=== PATIENT | female | born 1985 | race Caucasian/White ===

== ENCOUNTER 2024-05-09 15:49 | Emergency (ER) | payer MEDICAID ==
[~2024-05-09] VITALS: Ht 172.7 cm; Wt 135.0 kg
[2024-05-09 16:29] LABS: BASOPHILS # (AUTO) 0.1 X10'3 (0-0.2); BASOPHILS % (AUTO) 0.8 % (0-1); EOSINOPHILS # (AUTO) 0.1 X10'3 (0-0.9); HEMATOCRIT 35.4 % (35.0-45.0); LYMPHOCYTES # (AUTO) 2.3 X10'3 (1.1-4.8); MEAN CORPUSCULAR HEMOGLOBIN 27.6 PG (27.0-31.0); MEAN CORPUSCULAR HGB CONC 33.8 g/dL (33.0-36.5); MEAN CORPUSCULAR VOLUME 81.7 FL (78-98); MEAN PLATELET VOLUME 7.9 FL (7.4-10.4); MONOCYTES # (AUTO) 0.7 X10'3 (0-0.9); MONOCYTES % (AUTO) 7.2 % (2-12); NEUTROPHILS # (AUTO) 6.2 X10'3 (1.8-7.7); PLATELET COUNT 256 X10'3 (140-440); RED BLOOD COUNT 4.33 X10'6 (4.20-5.60); RED CELL DISTRIBUTION WIDTH 15.5 % (11.5-14.5); WHITE BLOOD COUNT 9.4 X10'3 (4.5-11.0)
[2024-05-09 16:38] LABS: ALBUMIN 3.2 G/DL (3.4-5.0); ANION GAP 7 (8-16); BLOOD UREA NITROGEN 13 MG/DL (7-18); BUN/CREATININE RATIO 12.9 (10.0-20.0); CALCIUM 8.6 MG/DL (8.5-10.1); CHLORIDE 106 MMOL/L (99-107); CREATININE 1.01 MG/DL (0.40-0.90); GLUCOSE 115 MG/DL (70-104); POTASSIUM 3.8 MMOL/L (3.5-5.1); SODIUM 139 MMOL/L (135-145); TOTAL CARBON DIOXIDE 26.1 MMOL/L (24-32); eCRCL 76 ML/MIN; eGFR 61 ML/MIN
[2024-05-09 17:19] LABS: PRO BRAIN NATRIURETIC PEPTIDE 321 PG/ML (0-125)
[2024-05-09 17:39] LABS: HCG SERUM QL NEGATIVE
[2024-05-09 18:24] VITALS: TEMP 97.9
[2024-05-09 18:24] LABS: BILIRUBIN,URINE NEGATIVE (Neg); CLARITY,URINE CLEAR (Clear); COLOR,URINE YELLOW (Yellow); GLUCOSE, URINE NEGATIVE (Neg); KETONES,URINE NEGATIVE (Neg); LEUKOCYTE ESTERASE ,URINE NEGATIVE (Neg); NITRITES, URINE NEGATIVE (Neg); OCCULT BLOOD,URINE NEGATIVE (Neg); PH,URINE 6.5 (4.8-8.0); PROTEIN,URINE 30 mg/dl (Neg); UROBILINOGEN,URINE 0.2 E.U/dL (0.2-1.0)
[2024-05-09 18:29] LABS: UA COLLECTION TYPE CLN CATCH MIDSTREAM
[2024-05-09 18:31] LABS: SQUAMOUS EPITHELIAL CELL,UR FEW /LPF (FEW)
[2024-05-09 18:32] LABS: BACTERIA,URINE 1+ /HPF (Neg); RBC,URINE NONE SEEN /HPF (0-2); URINE AMPHETAMINE SCREEN NEGATIVE (Neg); URINE BARBITUATE SCREEN NEGATIVE (Neg); URINE BENZODIAZEPINES SCREEN NEGATIVE (Neg); URINE CANNABINOID SCREEN NEGATIVE (Neg); URINE COCAINE SCREEN NEGATIVE (Neg); URINE METHADONE SCREEN NEGATIVE (Neg); URINE OPIATE SCREEN NEGATIVE (Neg); URINE PHENCYCLIDINE SCREEN NEGATIVE (Neg)
[2024-05-09] MEDS: dexamethasone sod phosphate 10mg/ml inj IM STA (19:12)
[2024-05-09] MEDS: metoclopramide 5 mg/ml inj IM ONE (19:13)
[2024-05-09] MEDS: diphenhydrAMINE 50 mg/ml inj IM ONE (19:13)
[2024-05-09] MEDS: ketorolac trometh. 30mg/ml inj. IM ONE (19:13)
[2024-05-09] MEDS ORDERED: SCOP1PAT11 TOP (19:41)
[2024-05-09] MEDS ORDERED: ONDA-243 PO (19:41)
[2024-05-09 20:30] VITALS: BP 152/80; PULSE 62; RESP 16; O2SAT 97
== END 2024-05-09 20:39 | disposition home or self-care (01) ==
LOC: ER 15:51
DX: R55 Syncope and collapse (principal); Z88.2 Allergy status to sulfonamides; Z87.891 Personal history of nicotine dependence
CPT/HCPCS: 36415; 70450; 80048; 80305; 81001; 83880; 84484; 84703; 85025; 87077; 87088; 87186; 93005; 96372; 99285; J1100; J1200; J1885; J2765

== ENCOUNTER 2024-06-21 18:19 | Emergency (ER) | payer MEDICAID ==
[~2024-06-21] VITALS: Ht 172.7 cm; Wt 131.9 kg
[~2024-06-21 18:19] MED LIST: ONDA-243 PO; SCOP1PAT11 TOP
[2024-06-21 19:34] LABS: BASOPHILS # (AUTO) 0.1 X10'3 (0-0.2); BASOPHILS % (AUTO) 0.9 % (0-1); EOSINOPHILS # (AUTO) 0.2 X10'3 (0-0.9); EOSINOPHILS % (AUTO) 1.7 % (0-6); HEMOGLOBIN 12.3 g/dl (12.0-16.0); LYMPHOCYTES # (AUTO) 2.5 X10'3 (1.1-4.8); LYMPHOCYTES % (AUTO) 23.9 % (21-51); MEAN CORPUSCULAR HEMOGLOBIN 27.3 PG (27.0-31.0); MEAN CORPUSCULAR HGB CONC 34.1 g/dL (33.0-36.5); MEAN CORPUSCULAR VOLUME 80.3 FL (78-98); MEAN PLATELET VOLUME 7.6 FL (7.4-10.4); MONOCYTES # (AUTO) 0.8 X10'3 (0-0.9); MONOCYTES % (AUTO) 7.3 % (2-12); NEUTROPHILS # (AUTO) 6.9 X10'3 (1.8-7.7); NEUTROPHILS % (AUTO) 66.2 % (42-75); PLATELET COUNT 276 X10'3 (140-440); RED BLOOD COUNT 4.48 X10'6 (4.20-5.60); RED CELL DISTRIBUTION WIDTH 15.3 % (11.5-14.5); WHITE BLOOD COUNT 10.4 X10'3 (4.5-11.0)
[2024-06-21 19:45] LABS: ALANINE AMINOTRANSFERASE 32 U/L (12-78); ALBUMIN 3.4 G/DL (3.4-5.0); ALBUMIN/GLOBULIN RATIO 0.8 (1.1-1.5); ALKALINE PHOSPHATASE 77 IU/L (46-116); ANION GAP 10 (8-16); ASPARTATE AMINO TRANSFERASE 16 U/L (10-37); BILIRUBIN,TOTAL 0.6 MG/DL (0.1-1.0); BLOOD UREA NITROGEN 10 MG/DL (7-18); BUN/CREATININE RATIO 13.3 (10.0-20.0); CALCIUM 8.7 MG/DL (8.5-10.1); CHLORIDE 104 MMOL/L (99-107); CREATININE 0.75 MG/DL (0.40-0.90); GLUCOSE 97 MG/DL (70-104); LIPASE 18 U/L (16-77); POTASSIUM 3.6 MMOL/L (3.5-5.1); SODIUM 140 MMOL/L (135-145); TOTAL CARBON DIOXIDE 26.1 MMOL/L (24-32); TOTAL PROTEIN 7.5 G/DL (6.4-8.2); eCRCL 103 ML/MIN; eGFR 86 ML/MIN
[2024-06-21] MEDS ORDERED: iohexol 300mg/ml 100ml inj. ONE (21:45)
[2024-06-21] MEDS: HYDROmorphone 1 mg/ml syringe IV ONE (21:54)
[2024-06-21 21:58] LABS: BILIRUBIN,URINE SMALL (Neg); CLARITY,URINE SLIGHTLY CLOUDY (Clear); COLOR,URINE YELLOW (Yellow); GLUCOSE, URINE NEGATIVE (Neg); KETONES,URINE NEGATIVE (Neg); LEUKOCYTE ESTERASE ,URINE NEGATIVE (Neg); NITRITES, URINE NEGATIVE (Neg); OCCULT BLOOD,URINE NEGATIVE (Neg); PH,URINE 6.5 (4.8-8.0); PROTEIN,URINE NEGATIVE (Neg); UROBILINOGEN,URINE 0.2 E.U/dL (0.2-1.0)
[2024-06-21] MEDS: ondansetron/PF 4mg/2ml inj IV ONE (21:58)
[2024-06-21 21:59] LABS: URINE HCG NEGATIVE (NEG)
[2024-06-21] MEDS: morphine 4 MG/ML inj SYRINge IV ONE ×2 (21:59→22:58)
[2024-06-21 22:14] LABS: UA COLLECTION TYPE VOIDED
[2024-06-21 22:15] LABS: BACTERIA,URINE FEW /HPF (Neg); SQUAMOUS EPITHELIAL CELL,UR FEW /LPF (FEW)
[2024-06-21 22:16] LABS: RBC,URINE 0-2 /HPF (0-2); WBC,URINE 0-4 /HPF (0-4)
[2024-06-21] MEDS: metoclopramide 5 mg/ml inj IV ONE (22:59)
[2024-06-21] MEDS: normal saline 1000ml 1,000 ML IV ONE (23:46)
[2024-06-22] MEDS ORDERED: HYDR-3965 PO ×2 (00:19→18:30)
[2024-06-22 00:58] VITALS: BP 128/55; PULSE 78; RESP 18; TEMP 98.9; O2SAT 99
[2024-06-22] MEDS ORDERED: DICY10CA88 PO (11:18)
[2024-06-22] MEDS ORDERED: ONDA-243 PO (11:18)
== END 2024-06-22 01:02 | disposition home or self-care (01) ==
LOC: ER 18:20
DX: R10.84 Generalized abdominal pain (principal); Z88.2 Allergy status to sulfonamides; Z79.899 Other long term (current) drug therapy
CPT/HCPCS: 36415; 74177; 80053; 81001; 81025; 83690; 84484; 85025; 93005; 96361; 96374; 96375; 96376; 99285; A6258; J2270; J2405; J2765; J7030; Q9967; A6449

== ENCOUNTER 2024-08-28 12:16 | Emergency (ER) | payer MEDICAID ==
[~2024-08-28] VITALS: Ht 172.7 cm; Wt 130.2 kg
[2024-08-28 12:23] VITALS: TEMP 98.4
[2024-08-28 13:01] LABS: BASOPHILS % (AUTO) 0.5 % (0-1); EOSINOPHILS % (AUTO) 0.7 % (0-6); HEMATOCRIT 34.7 % (35.0-45.0); HEMOGLOBIN 11.8 g/dl (12.0-16.0); LYMPHOCYTES # (AUTO) 1.2 X10'3 (1.1-4.8); LYMPHOCYTES % (AUTO) 30.5 % (21-51); MEAN CORPUSCULAR HEMOGLOBIN 27.4 PG (27.0-31.0); MEAN CORPUSCULAR HGB CONC 34.1 g/dL (33.0-36.5); MEAN CORPUSCULAR VOLUME 80.2 FL (78-98); MEAN PLATELET VOLUME 7.6 FL (7.4-10.4); MONOCYTES # (AUTO) 0.5 X10'3 (0-0.9); NEUTROPHILS # (AUTO) 2.2 X10'3 (1.8-7.7); NEUTROPHILS % (AUTO) 56.3 % (42-75); PLATELET COUNT 196 X10'3 (140-440); RED BLOOD COUNT 4.32 X10'6 (4.20-5.60); RED CELL DISTRIBUTION WIDTH 14.8 % (11.5-14.5); WHITE BLOOD COUNT 3.9 X10'3 (4.5-11.0)
[2024-08-28 13:13] LABS: ALANINE AMINOTRANSFERASE 23 U/L (12-78); ALBUMIN 3.2 G/DL (3.4-5.0); ALBUMIN/GLOBULIN RATIO 0.7 (1.1-1.5); ALKALINE PHOSPHATASE 69 IU/L (46-116); ANION GAP 7 (8-16); ASPARTATE AMINO TRANSFERASE 16 U/L (10-37); BILIRUBIN,TOTAL 0.3 MG/DL (0.1-1.0); BLOOD UREA NITROGEN 9 MG/DL (7-18); BUN/CREATININE RATIO 12.2 (10.0-20.0); CALCIUM 8.1 MG/DL (8.5-10.1); CHLORIDE 105 MMOL/L (99-107); CREATININE 0.74 MG/DL (0.40-0.90); GLUCOSE 94 MG/DL (70-104); POTASSIUM 3.5 MMOL/L (3.5-5.1); SODIUM 138 MMOL/L (135-145); TOTAL CARBON DIOXIDE 26.5 MMOL/L (24-32); TOTAL PROTEIN 7.6 G/DL (6.4-8.2); eCRCL 103 ML/MIN; eGFR 87 ML/MIN
[2024-08-28 13:20] LABS: PRO BRAIN NATRIURETIC PEPTIDE 319 PG/ML (0-125)
[2024-08-28] MEDS ORDERED: MECL-302 PO (13:34)
[2024-08-28] MEDS ORDERED: ONDA-243 PO (13:34)
[2024-08-28] MEDS: meclizine 12.5mg tablet PO ONE ×2 (13:54→15:46)
[2024-08-28] MEDS: ondansetron 4mg rapidly disintigrating tab PO ONE ×2 (13:54→15:46)
[2024-08-28] MEDS: ketorolac trometh 30MG/ML vial 30 MG/ML VIAL IM ONE (15:10)
[2024-08-28 15:31] VITALS: BP 157/89; PULSE 69; RESP 14; O2SAT 99
== END 2024-08-28 15:46 | disposition home or self-care (01) ==
LOC: ER 12:16
DX: H81.10 Benign paroxysmal vertigo, unspecified ear (principal); Z88.2 Allergy status to sulfonamides; Z88.5 Allergy status to narcotic agent; Z88.6 Allergy status to analgesic agent; Z79.899 Other long term (current) drug therapy
CPT/HCPCS: 36415; 71045; 80053; 82948; 83880; 84484; 85025; 93005; 96372; 99285; J1885; J8597